=== PATIENT | female | born 1950 | race Caucasian/White ===

== ENCOUNTER 2018-08-24 09:44 | Emergency (ER) | payer MEDICARE ==
[2018-08-24] MEDS ORDERED: Ondansetron 4 MG/2 ML SDV IVPUSH ONE (10:38)
[2018-08-24] MEDS ORDERED: Sodium Chloride 0.9% 1,000 ML IV ONE (10:38)
[2018-08-24] MEDS ORDERED: Ketorolac 30 MG/ML SDV IVPUSH ONE (10:46)
--- NOTE | 2018-08-24 12:06 | EDM.PDOC ---
ED HPI GENERAL MEDICAL PROBLEM - General Chief Complaint: Gastrointestinal Problem Stated Complaint: VOMITING, DIARRHEA Time Seen by Provider: 08/24/18 10:22 Source of Information: Reports: Patient History Limitations: Reports: No Limitations - History of Present Illness INITIAL COMMENTS - FREE TEXT/NARRATIVE: HISTORY AND PHYSICAL: History of present illness: Patient is a 67-year-old female presents to the ED today with concerns for abdominal pain, diarrhea, and vomiting 3 days. 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 She states that since being here, her diet has been mostly fast food. She states that she is concerned she caught a bug eating different foods. Patient states that she also recently started Metformin and took 1 dose of this on Saturday. She states that since starting Saturday she has had uncontrollable diarrhea. She states she did have one episode of vomiting today. Patient describes diarrhea as watery and she has had several episodes daily of this since Saturday. Patient states her abdominal pain is located in the right upper and right lower quadrant and she rates as a 5 out of 10 and improves when she has a bowel movement. Patient states the pain is more like a "cramp" in her abdomen. Patient denies fever, chills, chest pain, shortness of breath, or cough. Denies headache, neck stiff ness, change in vision, syncope, or near syncope. Denies dysuria. Has not noted any blood in urine or stool. Patient has been eating and drinking appropriately. Patient has a history of diabetes, and depression. Review of systems: As per history of present illness and below otherwise all systems reviewed and negative. Past medical history: As per history of present illness and as reviewed below otherwise noncontributory. Surgical history: As per history of present illness and as reviewed below otherwise noncontributory. Social history: See social history for further information Family history: As per history of present illness and as reviewed below otherwise noncontributory. Physical exam: General: Patient is alert, oriented, and in no acute distress. She is sitting comfortably on exam table. HEENT: Atraumatic, normocephalic, pupils equal and reactive bilaterally, negative for conjunctival pallor or scleral icterus, mucous membranes dry, TMs normal bilaterally, throat clear, neck supple, nontender, trachea midline. No drooling or trismus noted. No meningeal signs. No hot potato voice noted. Lungs: Clear to auscultation, breath sounds equal bilaterally, chest nontender. Heart: S1S2, regular rate and rhythm without overt murmur Abdomen: Mild pain to palpation of the right lower quadrant. Positive bowel sounds throughout all quadrants. Otherwise, soft, nondistended. Negative for masses or hepatosplenomegaly. Negative for costovertebral tenderness. Pelvis: Stable nontender. Genitourinary: Deferred. Rectal: Deferred. Skin: Intact, warm, dry. No lesions or rashes noted. Extremities: Atraumatic, negative for cords or calf pain. Neurovascular unremarkable. Neuro: Awake, alert, oriented. Cranial nerves II through XII unremarkable. Cerebellum unremarkable. Motor and sensory unremarkable throughout. Exam nonfocal. Notes: Abdominal pelvic CT shows an indeterminate adenopathy within retrocrural space, retroperitoneum, and small bowel mesentery. Lymphoma should be considered. No bowel obstruction, free air, or drainable fluid. Discussed these findings in the family elevation in her liver enzymes. Discussed the importance and need to follow-up with a primary care provider in regards to these findings. Supportive care measures were reviewed and discussed. Voices understanding and is agreeable to plan of care. Denies any further questions or concerns at this time. Diagnostics: CBC, CMP, lipase, UA, stool studies, C. difficile, EKG, troponin, abd/pelvic CT Therapeutics: Saline, Zofran, Toradol Prescription: Zofran, Macrobid Impression: Dehydration Urinary Tract Infection Indeterminate adenopathy of retroperitoneum and small bowel Plan: 1. Take medication as prescribed. Encourage small but frequent symptoms of fluids to prevent dehydration. 2. You can alternate ibuprofen and Tylenol as directed for pain and discomfort. 3. Return to the ED as needed and as discussed. Definitive disposition and diagnosis as appropriate pending reevaluation and review of above. Abdominal Pain Score (Numeric/FACES): 7 - Related Data Allergies Allergy/AdvReac Type Severity Reaction Status Date / Time No Known Allergies Allergy Verified 08/24/18 10:28 Home Meds: Home Meds Citalopram [Citalopram HBr] 40 mg PO BEDTIME 08/24/18 [History] Labetalol 40 mg PO DAILY 08/24/18 [History] Losartan/Hydrochlorothiazide [Losartan-HCTZ 50-12.5 MG] 1 tab PO DAILY 08/24/18 [History] Nitrofurantoin Monohyd/M-Cryst [Macrobid 100 mg Capsule] 100 mg PO BID 5 Days # 10 capsule 08/24/18 [Rx] Ondansetron [Zofran ODT] 4 mg PO Q6H PRN #10 tab.dis 08/24/18 [Rx] Simvastatin [Zocor] 40 mg PO BEDTIME 08/24/18 [History] metFORMIN [Glucophage] 500 mg PO BID 08/24/18 [History] Past Medical History Cardiovascular History: Reports: High Cholesterol, Hypertension Musculoskeletal History: Reports: Arthritis Endocrine/Metabolic History: Reports: Diabetes, Type II - Infectious Disease History Infectious Disease History: Reports: Chicken Pox, Measles, Mumps - Past Surgical History HEENT Surgical History: Reports: Tonsillectomy, Visual, Other (See Below) Other HEENT Surgeries/Procedures: Wears eyeglasses Social & Family History - Family History Family Medical History: Noncontributory - Tobacco Use Smoking Status *Q: Former Smoker Used Tobacco, but Quit: Yes Month/Year Tobacco Last Used: 1997 - Caffeine Use Caffeine Use: Reports: Coffee, Soda - Recreational Drug Use Recreational Drug Use: No ED ROS GENERAL - Review of Systems Review Of Systems: ROS reveals no pertinent complaints other than HPI. ED EXAM, GI/ABD - Physical Exam Exam: See Below (see dictation) Course - Vital Signs Last Recorded V/S: Last Vital Signs Temp 36.3 C 08/24/18 10:30 Pulse 86 08/24/18 10:30 Resp 18 08/24/18 10:30 BP 125/79 08/24/18 10:30 Pulse Ox 98 08/24/18 10:30 - Orders/Labs/Meds Orders: Active Orders 24 hr Category Date Time Status EKG Documentation Completion [RC] STAT Care 08/24/18 12:06 Active CULTURE STOOL + CAMPY+SHIGATOX [RM] Stat Lab 08/24/18 12:25 Results CULTURE URINE [RM] Stat Lab 08/24/18 12:00 Received OVA & PARASITES BY IMMUNOASSAY [MREF] Stat Lab 08/24/18 12:25 Received Labs: Laboratory Tests 08/24/18 08/24/18 08/24/18 Range/Units 10:28 10:52 10:52 WBC 5.78 (4.0-11.0) K/uL RBC 4.73 (4.30-5.90) M/uL Hgb 15.0 (12.0-16.0) g/dL Hct 43.4 (36.0-46.0) % MCV 91.8 (80.0-98.0) fL MCH 31.7 (27.0-32.0) pg MCHC 34.6 (31.0-37.0) g/dL RDW Std Deviation 44.6 (28.0-62.0) fl RDW Coeff of Adilson 13 (11.0-15.0) % Plt Count 185 (150-400) K/uL MPV 10.60 (7.40-12.00) fL Neut % (Auto) 68.0 (48.0-80.0) % Lymph % (Auto) 15.1 L (16.0-40.0) % Wilkes % (Auto) 14.9 (0.0-15.0) % Eos % (Auto) 1.7 (0.0-7.0) % Baso % (Auto) 0.3 (0.0-1.5) % Neut # (Auto) 3.9 (1.4-5.7) K/uL Lymph # (Auto) 0.9 (0.6-2.4) K/uL Wilkes # (Auto) 0.9 H (0.0-0.8) K/uL Eos # (Auto) 0.1 (0.0-0.7) K/uL Baso # (Auto) 0.0 (0.0-0.1) K/uL Nucleated RBC % 0.0 /100WBC Nucleated RBCs # 0 K/uL Sodium 137 (136-145) mmol/L Potassium 3.9 (3.5-5.1) mmol/L Chloride 102 (98-107) mmol/L Carbon Dioxide 22.2 (21.0-32.0) mmol/L BUN 24 H (7.0-18.0) mg/dL Creatinine 1.0 (0.6-1.0) mg/dL Est Cr Clr Drug Dosing 42.59 mL/min Estimated GFR (MDRD) 55.1 ml/min Glucose 139 H (74-106) mg/dL POC Glucose 142 H (60-110) mg/dL Calcium 8.5 (8.5-10.1) mg/dL Total Bilirubin 0.6 (0.2-1.0) mg/dL AST 90 H (15-37) IU/L ALT 80 H (14-63) IU/L Alkaline Phosphatase 66 (46-116) U/L Troponin I (0.000-0.056) ng/mL Total Protein 7.3 (6.4-8.2) g/dL Albumin 3.8 (3.4-5.0) g/dL Globulin 3.5 (2.6-4.0) g/dL Albumin/Globulin Ratio 1.1 (0.9-1.6) Lipase (73-393) U/L Urine Color Urine Appearance Urine pH (5.0-8.0) Ur Specific [place] (1.001-1.035) Urine Protein (NEGATIVE) mg/dL Urine Glucose (UA) (NEGATIVE) mg/dL Urine Ketones (NEGATIVE) mg/dL Urine Occult Blood (NEGATIVE) Urine Nitrite (NEGATIVE) Urine Bilirubin (NEGATIVE) Urine Ictotest Urine Urobilinogen (<2.0) EU/dL Ur Leukocyte Esterase (NEGATIVE) Urine RBC (0-2/HPF) Urine WBC (0-5/HPF) Ur Epithelial Cells (NONE-FEW) Urine Bacteria (NEGATIVE) Urine Mucus (NONE-MOD) 08/24/18 08/24/18 Range/Units 10:52 12:00 WBC (4.0-11.0) K/uL RBC (4.30-5.90) M/uL Hgb (12.0-16.0) g/dL Hct (36.0-46.0) % MCV (80.0-98.0) fL MCH (27.0-32.0) pg MCHC (31.0-37.0) g/dL RDW Std Deviation (28.0-62.0) fl RDW Coeff of Adilson (11.0-15.0) % Plt Count (150-400) K/uL MPV (7.40-12.00) fL Neut % (Auto) (48.0-80.0) % Lymph % (Auto) (16.0-40.0) % Wilkes % (Auto) (0.0-15.0) % Eos % (Auto) (0.0-7.0) % Baso % (Auto) (0.0-1.5) % Neut # (Auto) (1.4-5.7) K/uL Lymph # (Auto) (0.6-2.4) K/uL Wilkes # (Auto) (0.0-0.8) K/uL Eos # (Auto) (0.0-0.7) K/uL Baso # (Auto) (0.0-0.1) K/uL Nucleated RBC % /100WBC Nucleated RBCs # K/uL Sodium (136-145) mmol/L Potassium (3.5-5.1) mmol/L Chloride (98-107) mmol/L Carbon Dioxide (21.0-32.0) mmol/L BUN (7.0-18.0) mg/dL Creatinine (0.6-1.0) mg/dL Est Cr Clr Drug Dosing mL/min Estimated GFR (MDRD) ml/min Glucose (74-106) mg/dL POC Glucose (60-110) mg/dL Calcium (8.5-10.1) mg/dL Total Bilirubin (0.2-1.0) mg/dL AST (15-37) IU/L ALT (14-63) IU/L Alkaline Phosphatase (46-116) U/L Troponin I < 0.050 (0.000-0.056) ng/mL Total Protein (6.4-8.2) g/dL Albumin (3.4-5.0) g/dL Globulin (2.6-4.0) g/dL Albumin/Globulin Ratio (0.9-1.6) Lipase 116 (73-393) U/L Urine Color YELLOW Urine Appearance CLEAR Urine pH 6.0 (5.0-8.0) Ur Specific [place] 1.025 (1.001-1.035) Urine Protein 30 H (NEGATIVE) mg/dL Urine Glucose (UA) NEGATIVE (NEGATIVE) mg/dL Urine Ketones TRACE H (NEGATIVE) mg/dL Urine Occult Blood NEGATIVE (NEGATIVE) Urine Nitrite NEGATIVE (NEGATIVE) Urine Bilirubin SMALL H (NEGATIVE) Urine Ictotest NEGATIVE Urine Urobilinogen 0.2 (<2.0) EU/dL Ur Leukocyte Esterase SMALL H (NEGATIVE) Urine RBC 0-2 (0-2/HPF) Urine WBC 6-8 (0-5/HPF) Ur Epithelial Cells FEW (NONE-FEW) Urine Bacteria FEW (NEGATIVE) Urine Mucus MODERATE (NONE-MOD) Meds: Medications Discontinued Medications Generic Name Dose Route Start Last Admin Trade Name Freq PRN Reason Stop Dose Admin Sodium Chloride 1,000 mls @ 999 mls/hr 08/24/18 10:38 08/24/18 10:55 Normal Saline IV 08/24/18 11:38 999 mls/hr STAT ONE Administration Iopamidol 90 ml 08/24/18 12:26 08/24/18 12:26 Isovue Multipack-370 (76%) IVPUSH 08/24/18 12:27 90 ml ONETIME STA Administration Ketorolac Tromethamine 30 mg 08/24/18 10:46 08/24/18 10:56 Toradol IVPUSH 08/24/18 10:47 30 mg ONETIME ONE Administration Metoclopramide HCl 10 mg 08/24/18 12:42 08/24/18 12:47 Reglan IV 08/24/18 12:43 10 mg ONETIME ONE Administration Metoclopramide HCl Confirm 08/24/18 12:42 08/24/18 12:52 Reglan Administered 08/24/18 12:43 Not Given Dose 10 mg .ROUTE .STK-MED ONE Ondansetron HCl 4 mg 08/24/18 10:38 08/24/18 10:55 Zofran IVPUSH 08/24/18 10:39 4 mg ONETIME ONE Administration Departure - Departure Time of Disposition: 13:06 Disposition: Home, Self-Care 01 Clinical Impression: Transaminitis, Lymphadenopathy, retroperitoneal Urinary tract infection Qualifiers: Urinary tract infection type: acute cystitis Hematuria presence: without hematuria Qualified Code(s): N30.00 - Acute cystitis without hematuria - Discharge Information Prescriptions: Nitrofurantoin Monohyd/M-Cryst [Macrobid 100 mg Capsule] 100 mg PO BID 5 Days # 10 capsule Ondansetron [Zofran ODT] 4 mg PO Q6H PRN #10 tab.dis PRN Reason: Nausea Instructions: Urinary Tract Infection, Adult, [id number] Referrals: PCP,None [Primary Care Provider] - Forms: ED Department Discharge Additional Instructions: The following information is given to patients seen in the emergency department who are being discharged to home. This information is to outline your options for follow-up care. We provide all patients seen in our emergency department with a follow-up referral. The need for follow-up, as well as the timing and circumstances, are variable depending upon the specifics of your emergency department visit. If you don't have a primary care physician on staff, we will provide you with a referral. We always advise you to contact your personal physician following an emergency department visit to inform them of the circumstance of the visit and for follow-up with them and/or the need for any referrals to a consulting specialist. The emergency department will also refer you to a specialist when appropriate. This referral assures that you have the opportunity for follow-up care with a specialist. All of these measure are taken in an effort to provide you with optimal care, which includes your follow-up. Under all circumstances we always encourage you to contact your private physician who remains a resource for coordinating your care. When calling for follow-up care, please make the office aware that this follow-up is from your recent emergency room visit. If for any reason you are refused follow-up, please contact the [facility] Emergency Department at and asked to speak to the emergency department charge nurse. [facility] [address] [place] [id number] [address] [address] 1. Take medication as prescribed. Encourage small but frequent symptoms of fluids to prevent dehydration. 2. You can alternate ibuprofen and Tylenol as directed for pain and discomfort. 3. Return to the ED as needed and as discussed. - My Orders Last 24 Hours: My Active Orders 08/24/18 12:00 CULTURE URINE [RM] Stat 08/24/18 12:06 EKG Documentation Completion [RC] STAT 08/24/18 12:25 CULTURE STOOL + CAMPY+SHIGATOX [RM] Stat OVA & PARASITES BY IMMUNOASSAY [MREF] Stat - Assessment/Plan Last 24 Hours: My Active Orders 08/24/18 12:00 CULTURE URINE [RM] Stat 08/24/18 12:06 EKG Documentation Completion [RC] STAT 08/24/18 12:25 CULTURE STOOL + CAMPY+SHIGATOX [RM] Stat OVA & PARASITES BY IMMUNOASSAY [MREF] Stat
[2018-08-24] MEDS ORDERED: Iopamidol 755 MG/ML 500 ML Multipack Bottle IVPUSH STA (12:26)
[2018-08-24] MEDS ORDERED: Metoclopramide 10 MG/2 ML SDV ONE (12:42)
[2018-08-24] MEDS ORDERED: Metoclopramide 10 MG/2 ML SDV IV ONE (12:42)
--- NOTE | 2018-08-24 12:45 | CT ---
INDICATION: MID ABDOMINAL PAIN WITH N/V/D FOR 3 DAYS Indication: Mid abdominal pain. Nausea/vomiting/diarrhea for 3 days. Technique: CT of the abdomen and pelvis. 90 cc of Isovue 370 IV. Coronal/sagittal reconstruction images. Comparison: None. Findings: Lung bases: There is no pleural or pericardial effusion. The heart size is normal. Lung bases demonstrate no acute airspace disease. No basilar pneumothorax. Abdomen/pelvis: Normal benefit morphology. There is a low-density lesion in segment IV of the liver which measures 11 millimeters in image 48, series 201. This is indeterminate. No perihepatic ascites. No dilation of intrahepatic biliary radicles. Cholelithiasis. No pancreatic mass, pancreatic duct dilation, or glandular atrophy. The spleen is not enlarged. It measures approximately 12 centimeters in length. There are symmetric nephrograms. There is no solid renal mass. There is no perinephric fluid collection. There is a calcified mass in the uterine corpus compatible with a fibroid. There is no evidence of a small bowel or colonic obstruction. There are numerous nonenlarged lymph nodes present in the common femoral chains. There is extensive retroperitoneal adenopathy. Adenopathy is also present within the small bowel mesentery. The findings are suspicious for lymphoma. The largest lymph node is seen in the left para-aortic space, measuring up to 19 millimeters in short axis dimension. This is seen on image 62 of series 201. Lymph nodes at the portal caval space measure up to 18 millimeters in short axis dimension. There are retrocrural lymph nodes which are too numerous to be considered normal, measuring up to 12 millimeters in dimension. Nonenlarged lymph nodes are present in the epicardial fat, which are suspicious given the associated findings. Ossific fragments are present about the ischial tuberosities, which do not appear acute. There is no suspicious bone lesion identified. On sagittal reconstruction images, the vertebral body heights are maintained. Minimal anterolisthesis of L4 on L5. Impression: 1. Indeterminate adenopathy within the retrocrural space, retroperitoneum, and small bowel mesentery. There is an associated nataliia mesentery. 2. Lymphoma should be considered. There is no associated splenomegaly. 3. There is no bowel obstruction, free air, or drainable fluid collection. 4. Report called to Dr. Perez, emergency department, 08/24/2018, 12:42 p.m. Dictated by Archie Nuno MD @ 08/24/2018 12:44:15 PM Please note that all CT scans at this facility use dose modulation, iterative reconstruction, and/or weight-based dosing when appropriate to reduce radiation dose to as low as reasonably achievable. Dictated by: Archie Nuno MD @ 08/24/2018 12:44:27 (Electronically Signed)
== END 2018-08-24 13:24 | disposition home or self-care (01) ==
LOC: MW.ED 09:44
DX: N30.00 Acute cystitis without hematuria (principal); E86.0 Dehydration; R59.0 Localized enlarged lymph nodes; E11.9 Type 2 diabetes mellitus without complications; I10 Essential (primary) hypertension; Z79.899 Other long term (current) drug therapy; Z87.891 Personal history of nicotine dependence
CPT/HCPCS: 36415; 74177; 80053; 81001; 82962; 83690; 84484; 85025; 87046; 87086; 87324; 87328; 87329; 87899; 93005; 96361; 96374; 96375; 99284; J1885; J2405; J2765; J7040; Q9967